=== PATIENT | female | born 1980 | race Hispanic/Latino ===

== ENCOUNTER 2016-12-17 00:32 | Emergency (ER) | payer OTHER ==
[2016-12-17 00:45] VITALS: BP 126/85; PULSE 67; RESP 18; TEMP 97.8; O2SAT 98
[2016-12-17] MEDS ORDERED: Oxycodone/Acetaminophen 5/325 mg Tab PO STA (01:26)
[2016-12-17] MEDS ORDERED: Oxycodone/Acetaminophen 5/325 mg Tab ONE (01:37)
--- NOTE | 2016-12-17 01:42 | C.PDOC ---
History Of Present Illness Patient is a 36 year old female who presents to the ER with a complaint of right upper gum pain. Patient states the pain has been intermittent for a few weeks and motrin no longer relieves pain. Patient was seen by personal dentist a few weeks ago and recommended to see an oral surgeon to extract the tooth. Patient notes her insurance will not cover the tooth extraction. Denies fever, headache, neck pain, dizziness, or any other associated symptoms. Time Seen by Provider: 12/17/16 01:07 Chief Complaint (Nursing): Dental Pain History Per: Patient History/Exam Limitations: no limitations Onset/Duration Of Symptoms: Days (has worsen over past few days), Intermittent Episodes (For weeks) Current Symptoms Are (Timing): Still Present Past Medical History Reviewed: Historical Data, Nursing Documentation, Vital Signs Vital Signs: Last Vital Signs Temp 97.8 F 12/17/16 00:42 Pulse 67 12/17/16 00:42 Resp 18 12/17/16 00:42 BP 126/85 12/17/16 00:42 Pulse Ox 98 12/17/16 04:29 - Medical History PMH: Migraine Surgical History: Appendectomy Family History: States: Unknown Family Hx - Social History Hx Alcohol Use: Yes Hx Substance Use: No - Immunization History Hx Tetanus Toxoid Vaccination: No Hx Influenza Vaccination: Yes Hx Pneumococcal Vaccination: No Review Of Systems Except As Marked, All Systems Reviewed And Found Negative. Constitutional: Negative for: Fever, Chills ENT: Positive for: Mouth Pain (Right upper gum) Neurological: Negative for: Headache, Dizziness Physical Exam - Physical Exam Appears: Well, Non-toxic Skin: Normal Color, Warm, Dry Head: Atraumatic, Normacephalic, No Swelling Eye(s): bilateral: Normal Inspection, PERRL Oral Mucosa: Moist Tongue: Normal Appearing Teeth: Caries (deep right upper molar tooth# 3), Tender To Palpation Gingiva: Erythema (tooth 3), No Swelling, No Abscess Throat: Normal Neck: Normal, Normal ROM, Supple Cardiovascular: Rhythm Regular Neurological/Psych: Oriented x3 ED Course And Treatment O2 Sat by Pulse Oximetry: 98 Pulse Ox Interpretation: Normal Progress Note: Penicillin VK PO and Percocet PO were administered. Disposition Counseled Patient/Family Regarding: Diagnosis, Need For Followup, Rx Given - Disposition Referrals: DENTAL, [facility] [Other] Disposition: HOME/ ROUTINE Disposition Time: 01:40 Condition: GOOD Additional Instructions: TAKE MEDICATIONS PRESCRIBED MAY FOLLOW UP AT [facility] FOR ORAL SURGEON EVALUATION RETURN TO ER IF WORSE Prescriptions: Penicillin VK [Pen-Vee K] 2 tab PO BID #28 tab Acetaminophen with Codeine [Tylenol with Codeine #3 Tablet] 1 - 2 each PO QID # 20 tablet Instructions: Dental Caries (ED) - Clinical Impression Clinical Impression: Dental caries - Scribe Statement The provider has reviewed the documentation as recorded by the Scribfatuma Ivey All medical record entries made by the Wilberibfatuma were at my direction and personally dictated by me. I have reviewed the chart and agree that the record accurately reflects my personal performance of the history, physical exam, medical decision making, and the department course for this patient. I have also personally directed, reviewed, and agree with the discharge instructions and disposition.
== END 2016-12-17 01:59 | disposition home or self-care (01) ==
LOC: C.ER 00:32
DX: K02.9 Dental caries, unspecified (principal)